=== PATIENT | male | born 1980 | race Two or more races ===

== ENCOUNTER 2022-09-25 18:24 | Emergency (ER) | payer MEDICAID, OTHER ==
[~2022-09-25] VITALS: Ht 152.4 cm; Wt 77.2 kg
[2022-09-25 20:24] VITALS: BP 140/95
== END 2022-09-25 20:27 | disposition home or self-care (01) ==
LOC: ER 18:24
DX: M54.9 Dorsalgia, unspecified (principal); V89.2XXA Person injured in unspecified motor-vehicle accident, traffic, initial encounter; Y93.89 Activity, other specified; Y92.89 Other specified places as the place of occurrence of the external cause; Y99.8 Other external cause status
CPT/HCPCS: 72070